=== PATIENT | female | born 1980 | race Caucasian/White ===

== ENCOUNTER 2016-05-12 15:43 | Emergency (ER) | payer MEDICAID ==
[2016-05-12] MEDS ORDERED: DUONEB INH ONE (16:24)
== END 2016-05-12 17:27 | disposition home or self-care (01) ==
LOC: ER 15:43
DX: H66.92 Otitis media, unspecified, left ear (principal); J01.00 Acute maxillary sinusitis, unspecified; J01.10 Acute frontal sinusitis, unspecified; E28.2 Polycystic ovarian syndrome; Z79.84 Long term (current) use of oral hypoglycemic drugs
CPT/HCPCS: 71020; 87804; 87880; 94640